=== PATIENT | male | born 1995 | race Caucasian/White ===

== ENCOUNTER → 2024-03-25 11:31 | Outpatient (BNVA) | payer SELFPAY | PROVIDERS: Visit Provider Podiatrist Foot & Ankle Surgery | DX: S93.104A Unspecified dislocation of right toe(s), initial encounter; X58.XXXA Exposure to other specified factors, initial encounter; Y93.55 Activity, bike riding | CPT/HCPCS: 73620; 73630 ==

== ENCOUNTER → 2024-04-11 14:53 | Outpatient (BNVA) | payer OTHER, SELFPAY | PROVIDERS: Visit Provider Podiatrist Foot & Ankle Surgery | DX: S93.104D Unspecified dislocation of right toe(s), subsequent encounter; X58.XXXD Exposure to other specified factors, subsequent encounter | CPT/HCPCS: 73630 ==

== ENCOUNTER → 2024-05-05 13:51 | Outpatient (BNVA) | payer OTHER, SELFPAY | PROVIDERS: Visit Provider Podiatrist Foot & Ankle Surgery | DX: S93.104D Unspecified dislocation of right toe(s), subsequent encounter; X58.XXXD Exposure to other specified factors, subsequent encounter | CPT/HCPCS: 73630 ==